=== PATIENT | female | born 1950 | race Caucasian/White ===

== ENCOUNTER 2022-05-07 09:07 | Emergency (ER) | payer BC, MEDICARE ==
[2022-05-07 09:44] LABS: HEMOGLOBIN 14.2 gm/dl (12.3-15.3); RED BLOOD COUNT 4.77 M/UL (4.00-5.10); WHITE BLOOD COUNT 9.5 K/UL (4.5-11.0)
[2022-05-07 10:09] LABS: BUN/CREATININE RATIO 12 (0-10)
[2022-05-07] MEDS ORDERED: EYE MC (13:35)
[2022-05-07] MEDS ORDERED: VALACYCLOVIR1000 MG PO (13:35)
[2022-05-07] MEDS ORDERED: PREDNISONE 20 M20 MG PO (13:35)
[2022-05-07] MEDS ORDERED: REFRESH TEARS15 ML OP (13:35)
== END 2022-05-07 13:19 | disposition home or self-care (01) ==
LOC: ER1 09:07
PROVIDERS: Student in an Organized Health Care Education/Training Program
DX: G51.0 Bell's palsy (principal); Z88.1 Allergy status to other antibiotic agents; Z51.81 Encounter for therapeutic drug level monitoring
CPT/HCPCS: 70450; 70496; 70498; 70551; 80053; 85025; 85610; 85652; 85730; 86140; 93005; 96374; 99284; Q9967